=== PATIENT | female | born 1940 | race Caucasian/White ===

== ENCOUNTER 2018-03-15 16:05 | Emergency (ER) | payer MEDICARE, OTHER ==
[~2018-03-15] VITALS: Ht 162.6 cm; Wt 70.8 kg
--- OUTSIDE RECORDS SUMMARY | 2018-03-15 16:11 | XMS REPORT | Continuity of Care Document ---
Author Author [facility] Organization [facility] Address Unknown Phone Unavailable Allergies There is no data. Medications There is no data. Problems There is no data. Procedures There is no data. Results There is no data. Encounters ACCT No. Visit Date/Time Discharge Status Pt. Type Provider Facility Loc./Unit Complaint [id number] 07/10/2014 15:42:00 07/24/2014 14:17:00 DIS Outpatient [id number] 02/07/2013 13:14:00 02/07/2013 23:59:59 CLS Outpatient
--- OUTSIDE RECORDS SUMMARY | 2018-03-15 16:11 | XMS REPORT ---
Author Author CHEIKH ESPOSITO Organization [facility] Address [address] [place] [address] Care Team Providers Care Take Away Attendant Name Role Phone CHEIKH ESPOSITO Unavailable PROBLEMS Unknown Problems ALLERGIES No Known Allergies ENCOUNTERS Encounter Location Date Diagnosis [facility] [address] [facility] [id number] [place], [place] [id number] Jun, Dental examination Z01.20 IMMUNIZATIONS No Known Immunizations SOCIAL HISTORY Never Assessed REASON FOR VISIT deana PLAN OF CARE Activity Details Follow Up prn Reason:referral for TE's and dentures VITAL SIGNS Blood pressure systolic 157 mmHg 2017-06-29 Blood pressure diastolic 79 mmHg 2017-06-29 MEDICATIONS Medication Instructions Dosage Frequency Start Date End Date Duration Status Simvastatin Active Lisinopril Active GlipiZIDE Active RESULTS No Results PROCEDURES Procedure Date Ordered Result Body Site COMP ORAL EVALUATION - NEW/EST PT Jun 29, 2017 INTRAORL-PERIAPICAL 1 FILM [id number] Jun 29, 2017 INTRAORL-PERIAPICAL EA ADD FILM Jun 29, 2017 INTRAORL-PERIAPICAL EA ADD FILM Jun 29, 2017 PANORAMIC FILM SEE ALSO CODE [id number] Jun 29, 2017 INTRAORL-PERIAPICAL EA ADD FILM Jun 29, 2017 INTRAORL-PERIAPICAL EA ADD FILM Jun 29, 2017 INTRAORL-PERIAPICAL EA ADD FILM Jun 29, 2017 INTRAORL-PERIAPICAL EA ADD FILM Jun 29, 2017 INSTRUCTIONS MEDICATIONS ADMINISTERED No Known Medications MEDICAL (GENERAL) HISTORY Type Description Date Medical History Diabetes Medical History HBP
[2018-03-15] MEDS ORDERED: LISI1TAB10 (16:27)
[2018-03-15] MEDS ORDERED: SIMV40TA4 (16:27)
[2018-03-15] MEDS ORDERED: NF-GLIP2.5 (16:27)
--- NOTE | 2018-03-15 17:02 | ED Hip Pain/Injury ---
General Chief Complaint: Hip/Pelvic Problems Stated Complaint: L HIP PAIN Nursing Triage Note: C/O L HIP PAIN ONSET 5 WEEKS AGO WHEN SHE GOT OUT OF PORCH SWING. HAS BEEN FEELING BETER THAN TILED GARDEN PAIN BACK PAIINFUL TO BEAR WT ON L SIDE. Source: patient Exam Limitations: no limitations History of Present Illness Date Seen by Provider: Mar 15, 2018 Time Seen by Provider: 16:58 Initial Comments The patient is a 77-year-old white female. She presents with complaints of left hip and low back pain over a period of about 5 weeks. There was no history of vesiculation to suggest shingles. There was no specific moment for the onset of pain although initially Location: hip (L), pelvis Method of Injury: unknown Allergies and Home Medications Allergies Coded Allergies: No Known Drug Allergies (Unverified , 03/15/18) Patient Home Medication List Home Medication List Reviewed: Yes Constitutional: see HPI EENTM: no symptoms reported Respiratory: no symptoms reported Cardiovascular: no symptoms reported Gastrointestinal: no symptoms reported Genitourinary: no symptoms reported Musculoskeletal: no symptoms reported Skin: no symptoms reported Psychiatric/Neurological: No Symptoms Reported Past Phkldub-Fsfcjg-Azfdon Hx Patient Social History Alcohol Use: Denies Use Recreational Drug Use: No Smoking Status: Never a Smoker Recent Foreign Travel: No Contact w/Someone Who Travel: No Recent Infectious Disease Expo: No Past Medical History Surgeries: Yes Appendectomy, Tonsillectomy Respiratory: No Cardiac: Yes High Cholesterol, Hypertension Neurological: No Genitourinary: No Gastrointestinal: No Musculoskeletal: No Endocrine: No HEENT: No Cancer: No Integumentary: No Physical Exam Vital Signs Vital Signs - First Documented 03/15/18 16:10 Temp 97.0 Pulse 63 Resp 18 B/P (MAP) 164/74 (104) Pulse Ox 97 Capillary Refill : Less Than 3 Seconds General Appearance: No Apparent Distress, WD/WN HEENT: Normal ENT Inspection Neck: Normal Inspection Cardiovascular: Regular Rate, Rhythm, No Edema, No Gallop, No JVD, No Murmur, Normal Peripheral Pulses Respiratory: Chest Non Tender, Lungs Clear, Normal Breath Sounds, No Accessory Muscle Use, No Respiratory Distress, Accessory Muscle Use Gastrointestinal: Normal Bowel Sounds, No Organomegaly, No Pulsatile Mass, Non Tender, Soft Back: Normal Inspection Extremity: Normal Capillary Refill, Normal Inspection, Normal Range of Motion, Non Tender, No Calf Tenderness, No Pedal Edema Neurologic/Psychiatric: Alert, Oriented x3, No Motor/Sensory Deficits, Normal Mood/Affect, radiation officer II-XII Norm as Tested Skin: Normal Color, Warm/Dry Lymphatic: No Adenopathy Comments There was no pain to straight leg lift on the right. The patient experienced pain and inability to proceed at about 30 from the table on the left. She also exhibited difficulty and rolling onto her right side so that I might look at her spine. Progress/Results/Core Measures Results/Orders Lab Results Laboratory Tests Test 03/15/18 17:30 Range/Units White Blood Count 11.2 H 4.3-11.0 10^3/uL Red Blood Count 4.98 4.35-5.85 10^6/uL Hemoglobin 15.1 11.5-16.0 G/DL Hematocrit 45 35-52 % Mean Corpuscular Volume 90 80-99 FL Mean Corpuscular Hemoglobin 30 25-34 PG Mean Corpuscular Hemoglobin Concent 34 32-36 G/DL Red Cell Distribution Width 13.5 10.0-14.5 % Platelet Count 319 130-400 10^3/uL Mean Platelet Volume 10.8 H 7.4-10.4 FL Neutrophils (%) (Auto) 88 H 42-75 % Lymphocytes (%) (Auto) 7 L 12-44 % Monocytes (%) (Auto) 4 0-12 % Eosinophils (%) (Auto) 0 0-10 % Basophils (%) (Auto) 0 0-10 % Neutrophils # (Auto) 9.8 H 1.8-7.8 X 10^3 Lymphocytes # (Auto) 0.8 L 1.0-4.0 X 10^3 Monocytes # (Auto) 0.5 0.0-1.0 X 10^3 Eosinophils # (Auto) 0.0 0.0-0.3 10^3/uL Basophils # (Auto) 0.1 0.0-0.1 10^3/uL Neutrophils % (Manual) 87 % Lymphocytes % (Manual) 10 % Monocytes % (Manual) 3 % Eosinophils % (Manual) 0 % Basophils % (Manual) 0 % Band Neutrophils 0 % Blood Morphology Comment NORMAL Sodium Level 140 135-145 MMOL/L Potassium Level 4.0 3.6-5.0 MMOL/L Chloride Level 103 98-107 MMOL/L Carbon Dioxide Level 23 21-32 MMOL/L Anion Gap 14 5-14 MMOL/L Blood Urea Nitrogen 25 H 7-18 MG/DL Creatinine 1.22 0.60-1.30 MG/DL Estimat Glomerular Filtration Rate 43 BUN/Creatinine Ratio 20 Glucose Level 190 H 70-105 MG/DL Calcium Level 10.2 H 8.5-10.1 MG/DL Total Bilirubin 0.5 0.1-1.0 MG/DL Aspartate Amino Transf (AST/SGOT) 25 5-34 U/L Alanine Aminotransferase (ALT/SGPT) 14 0-55 U/L Alkaline Phosphatase 97 40-136 U/L Total Protein 8.4 H 6.4-8.2 GM/DL Albumin 4.8 H 3.2-4.5 GM/DL My Orders Orders - OSCAR COMBS MD Cbc With Automated Diff (03/15/18 17:02) Comprehensive Metabolic Panel (03/15/18 17:02) Ct Lumbar Spine Wo (03/15/18 17:02) Ct Pelvis Wo (03/15/18 17:05) Manual Differential (03/15/18 17:30) Vital Signs/I&O 03/15/18 16:10 Temp 97.0 Pulse 63 Resp 18 B/P (MAP) 164/74 (104) Pulse Ox 97 Blood Pressure Mean: 104 Departure Communication (Admissions) CT scan shows arthritic changes in the lumbar spine. Impression Primary Impression: low back pain Additional Impression: sciatica Disposition: HOME, SELF-CARE Condition: Stable/Unchanged Departure-Patient Inst. Decision time for Depature: 18:38 Referrals: TAYLER SAMUELS (PCP) Primary Care Physician Add. Discharge Instructions: All discharge instructions reviewed with patient and/or family. Voiced understanding. You may use heat to the area 3 times daily. Naproxen twice daily. This take several days to kick in. Lortab at bedtime. If you are continuing to have pain without improvement over the next several days contact your provider the first of next week and consider physical therapy. Scripts Hydrocodone Bit/Acetaminophen (LORTAB 7.5 MG TABLET) 1 Ea Tablet 1 EA PO at bedtime, #10 TAB Prov: OSCAR COMBS MD 03/15/18 Naproxen (Naproxen) 500 Mg Tablet 500 MG PO twice a day, #30 TAB Prov: OSCAR COMBS MD 03/15/18 OSCAR COMBS MD Mar 15, 2018 17:02
[2018-03-15 17:47] LABS: BASOPHILS # (AUTO) 0.1 10^3/uL (0.0-0.1); BASOPHILS % (AUTO) 0 % (0-10); EOSINOPHILS % (AUTO) 0 % (0-10); HEMATOCRIT 45 % (35-52); HEMOGLOBIN 15.1 G/DL (11.5-16.0); LYMPHOCYTES # (AUTO) 0.8 X 10^3 (1.0-4.0); LYMPHOCYTES % (AUTO) 7 % (12-44); MEAN CORPUSCULAR HEMOGLOBIN 30 PG (25-34); MEAN CORPUSCULAR HGB CONC 34 G/DL (32-36); MEAN CORPUSCULAR VOLUME 90 FL (80-99); MEAN PLATELET VOLUME 10.8 FL (7.4-10.4); MONOCYTES # (AUTO) 0.5 X 10^3 (0.0-1.0); MONOCYTES % (AUTO) 4 % (0-12); NEUTROPHILS # (AUTO) 9.8 X 10^3 (1.8-7.8); NEUTROPHILS % (AUTO) 88 % (42-75); PLATELET COUNT 319 10^3/uL (130-400); RED BLOOD COUNT 4.98 10^6/uL (4.35-5.85); RED CELL DISTRIBUTION WIDTH 13.5 % (10.0-14.5); WHITE BLOOD COUNT 11.2 10^3/uL (4.3-11.0)
[2018-03-15 17:56] LABS: ALBUMIN 4.8 GM/DL (3.2-4.5); BILIRUBIN,TOTAL 0.5 MG/DL (0.1-1.0); CALCIUM 10.2 MG/DL (8.5-10.1); CREATININE SERUM 1.22 MG/DL (0.60-1.30); TOTAL PROTEIN 8.4 GM/DL (6.4-8.2)
[2018-03-15 18:00] LABS: BAND NEUTROPHILS 0 %; BASOPHILS % (MANUAL) 0 %; EOSINOPHILS % (MANUAL) 0 %; LYMPHOCYTES % (MANUAL) 10 %; MONOCYTES % (MANUAL) 3 %; NEUTROPHILS % (MANUAL) 87 %; RBC MORPH NORMAL
--- NOTE | 2018-03-15 18:04 | Diagnostic Imaging Report ---
PROCEDURE: CT lumbar spine without contrast. TECHNIQUE: Multiple contiguous axial images were obtained through the lumbar spine without the use of intravenous contrast. Sagittal and coronal reformations were then performed. INDICATION: Back and left hip pain with painful bearing of weight on the left side. FINDINGS: There is mild left convexity curvature of the lumbar spine. There is advanced narrowing of L4-L5 and L5-S1 disc spaces with associated endplate sclerosis from L3-L5. There is moderate degenerative facet arthropathy and prominent endplate spurring in the lumbar region. Vertebral body heights are maintained. No acute fracture is identified. There is no evidence of paraspinous hematoma. IMPRESSION: Diffuse degenerative changes in the lumbar spine without CT evidence of acute abnormality. Dictated by: Dictated on workstation # [id number]
--- NOTE | 2018-03-15 18:10 | Diagnostic Imaging Report ---
PROCEDURE: CT pelvis without contrast. TECHNIQUE: Multiple contiguous axial images were obtained through the pelvis without the use of intravenous contrast. Sagittal and coronal reformations were performed. INDICATION: Left hip pain, onset five weeks ago. Injury when stepped off a porch swing. Painful with bearing weight. Patient has a pessary device. EXAMINATION: CT pelvis without contrast, 03/15/2018. FINDINGS: There is diffuse degenerative change in both hips. No acute fractures or dislocations are seen. Mild osteopenia noted and if pain persists, MRI could evaluate for edema along the nondisplaced occult fracture. Within the visualized lower lumbar spine diffuse multilevel intervertebral disc space narrowing, spurring and vacuum gas phenomenon noted. The visualized intrapelvic structures demonstrate a fluid collection in the presacral space which is slightly more dense than fluid and could be due to proteinaceous material or even a small amount of hemorrhage. Inferior to the region, the coccyx is angulated. Perhaps this is reactive process secondary to a fracture of the coccyx. Correlate for any point tenderness in the region. Tiny hyperdensities in the dependent aspect of the fluid are noted and appear possibly calcified perhaps from a previous old injury. The remaining intrapelvic structures demonstrate a pessary device. There is atherosclerotic disease. Calcifications in the left pelvis perhaps associated with the left ovary. Nonemergent sonography could further characterize as a dermoid is a possibility. IMPRESSION: 1. Anterior angulation of the distal coccyx which is age-indeterminate but possibly old given adjacent anterior calcifications; however, fluid collection in the presacral space is noted and nonspecific. This could be due to a recent superimposed acute fracture in the area or an abnormality in the abdomen or pelvis. Clinical correlation for point tenderness to the sacrum and coccyx recommended. Followup imaging recommended as clinically warranted. 2. No acute fracture appreciated with other findings as above. Dictated by: Dictated on workstation # [id number]
[2018-03-15] MEDS ORDERED: HYDR-34 PO (18:41)
[2018-03-15] MEDS ORDERED: NAPR-915 PO (18:41)
[2018-03-15 18:53] VITALS: BP 164/74
== END 2018-03-15 18:45 | disposition home or self-care (01) ==
LOC: EDUNIT# 16:05 → ER 16:07
DX: M54.40 Lumbago with sciatica, unspecified side (principal); E78.00 Pure hypercholesterolemia, unspecified; I10 Essential (primary) hypertension; Z90.49 Acquired absence of other specified parts of digestive tract; Z90.89 Acquired absence of other organs
CPT/HCPCS: 36415; 72131; 72192; 80053; 85007; 85027